=== PATIENT | female | born 1985 | race Caucasian/White ===

== ENCOUNTER 2022-03-19 08:56 | Outpatient (REF) | payer OTHER, SELFPAY ==
--- NOTE | ~2022-03-19 | XR_ITS ---
EXAMINATION: BILATERAL KNEE X-RAY CLINICAL INFORMATION: Pain COMPARISON: None TECHNIQUE: 2 views of each knee FINDINGS: Bone alignment is normal. No fracture or dislocation is seen. Joint spaces are normal. There is no joint effusion. XR/XR knee RT 2V IMPRESSION: Unremarkable exam.
--- NOTE | ~2022-03-19 | XR_ITS ---
EXAMINATION: BILATERAL KNEE X-RAY CLINICAL INFORMATION: Pain COMPARISON: None TECHNIQUE: 2 views of each knee FINDINGS: Bone alignment is normal. No fracture or dislocation is seen. Joint spaces are normal. There is no joint effusion. XR/XR knee LT 2V IMPRESSION: Unremarkable exam.
[2022-03-19 09:21] LABS: MANUAL DIFF FLAG NO
[2022-03-19 09:54] LABS: Basophils Percent Auto 0.5 % (0-2); Eosinophils Absolute Auto 0.2 X10*3/uL (0.0-0.4); Eosinophils Percent Auto 5.6 % (0-4); Hematocrit 38.5 % (37.0-47.0); Hemoglobin 12.9 g/dl (12.0-16.0); Imm Gran Abs Auto 0.01 X10*3/uL (0.00-0.03); Imm Gran Pct Auto 0.2 % (0.0-0.4); Lymphocytes Absolute Auto 1.3 X10*3/uL (1.2-4.9); Lymphocytes Percent Auto 30.5 % (20-40); Mean Corpuscular HGB Conc 33.5 g/dl (31.0-35.0); Mean Corpuscular Hemoglobin 28.2 pg (27.0-33.0); Mean Corpuscular Volume 84.2 fL (80.0-98.0); Mean Platelet Volume 9.7 fL (9.4-12.3); Monocytes Absolute Auto 0.6 X10*3/uL (0.1-1.2); Monocytes Percent Auto 13.7 % (2-11); Neutrophils Percent Auto 49.5 % (45-73); Platelet Count 238 X10*3/uL (160-400); Red Blood Count 4.57 X10*6/uL (4.20-5.50); Red Cell Distribution Width 12.6 % (11.0-16.0); White Blood Count 4.1 X10*3/uL (4.8-10.8)
[2022-03-19 10:28] LABS: Alanine Aminotransferase 31 U/L (0-31); Alkaline Phosphatase 74 U/L (39-117); Anion Gap 14 (12-20); Aspartate Amino Transferase 23 U/L (5-31); Bilirubin Total 0.4 mg/dL (0.0-1.0); Blood Urea Nitrogen 15 mg/dL (9-16); Calcium 8.9 mg/dL (8.4-10.2); Carbon Dioxide 27 mmol/L (22-29); Chloride 103 mmol/L (96-108); Cholesterol 174 mg/dL; Estimated Glomerular Filt Rate > 60; Glucose Fasting 91 mg/dL (60-99); HDL Cholesterol 38 mg/dL; LDL Cholesterol Calculated 122 mg/dl; Potassium 3.5 mmol/L (3.3-5.1); Sodium 140 mmol/L (135-145); Total Protein 7.4 g/dL (6.5-8.0); Triglycerides 73 mg/dL
[2022-03-19 11:16] LABS: TSH reflex Free T4 2.47 uIU/mL (0.32-4.0)
[2022-03-19 11:43] LABS: Folate 8.6 ng/mL (> or = 4.0); Vitamin B12 368 pg/mL (200-900)
[2022-03-22 08:51] LABS: HCG Tumor Marker <3 mIU/mL; Prolactin 8.1 ng/mL
[2022-03-25 12:41] LABS: Vitamin D 25-OH, D2 <4 ng/mL; Vitamin D 25-OH, D3 16 ng/mL; Vitamin D 25-OH, Total 16 ng/mL (30-100)
[2022-03-28 19:57] LABS: Estrogen 116.3 pg/mL
== END 2022-03-19 08:57 | disposition home or self-care (01) ==
LOC: HO.XRAY 08:56
PROVIDERS: PCP Nurse Practitioner Acute Care; Visit Provider Nurse Practitioner Acute Care
DX: Z00.00 Encounter for general adult medical examination without abnormal findings (principal); N92.6 Irregular menstruation, unspecified; N91.2 Amenorrhea, unspecified; M25.561 Pain in right knee; M25.562 Pain in left knee
CPT/HCPCS: 36415; 73560; 80053; 80061; 82306; 82607; 82672; 82746; 84146; 84443; 84702; 85025

== ENCOUNTER 2023-03-26 11:10 | Emergency (ER) | payer OTHER, SELFPAY ==
--- NOTE | ~2023-03-26 | CT_ITS ---
EXAMINATION: CT ABDOMEN AND PELVIS WITH CONTRAST CLINICAL INFORMATION: Bloody diarrhea and abdominal cramping COMPARISON: CT abdomen pelvis 05/24/2009 TECHNIQUE: Multidetector volumetric images were obtained from the superior aspect of the liver through the pubic symphysis following administration 85 mL of Omnipaque 350 intravenous contrast. Sagittal and coronal reformatted images were obtained on the technologist's workstation. Oral contrast: No This CT examination was performed using dose optimization techniques as appropriate, variously including the following: *Automated exposure control *Adjustment of mA and/or kV according to patient size (this includes techniques or standardized protocols for targeted exams where dose is matched to indication/reason for exam; i.e. extremities or head) *Use of iterative reconstruction technique DLP: 650 mGy-cm FINDINGS: LUNG BASES: The visualized lung bases are unremarkable. LIVER, GALLBLADDER, AND BILIARY TREE: The liver is normal in size, shape, and attenuation. No focal hepatic lesion or biliary ductal dilatation is present. The gallbladder is unremarkable with no evidence of radiopaque gallstones, gallbladder wall thickening, or obvious pericholecystic inflammatory changes. PANCREAS: Unremarkable. SPLEEN: Unremarkable. ADRENAL GLANDS: Unremarkable. KIDNEYS AND URETERS: The kidneys are normal in size, shape, and attenuation. No hydronephrosis, hydroureter, or calculi seen. No perinephric stranding. BLADDER: Unremarkable. GASTROINTESTINAL TRACT: Wall thickening and inflammatory change is present throughout the rectosigmoid as well as the descending colon. The transverse colon and in right: Appear normal. At the time of the 2008 CT scan, similar, but significant less marked findings were present. The small bowel is unremarkable. The appendix is unremarkable. ABDOMINAL WALL: No significant hernia is appreciated. LYMPH NODES: Normal. VASCULAR: Unremarkable. PELVIC VISCERA: The uterus and adnexa are unremarkable. Small volume of ascites is present in the cul-de-sac. OSSEOUS STRUCTURES: Unremarkable. The SI joints appear normal. CT/CT abdomen pelvis w IV con IMPRESSION: Colitis involving the descending colon and rectosigmoid. Fleischner guidelines were followed.
[2023-03-26 11:13] VITALS: BP 120/72; PULSE 94; RESP 18; TEMP 36.2; O2SAT 92; BMI 32.0
--- NOTE | 2023-03-26 11:14 | ED_ITS ---
HPI - General Adult General Chief complaint: Nausea/Vomiting/Diarrhea Stated complaint: diarrhea Time Seen by Provider: 03/26/23 11:17 Source: patient Mode of arrival: ambulatory Limitations: no limitations History of Present Illness HPI narrative: 37yoF with a PMHx of ulcerative colitis who is been in remission x 7 years, anxiety, GERD who is presenting to the ER with complaints of abdominal pain with bloody stools over the past week worse today. Reports that she initially started having nausea and vomiting with diarrhea that was normal in color and abdominal cramping. She called her boss at [facility] due to she was not feeling well a few days ago and 1 of her bosses told them that it was going around the [facility]. She denies any recent travel or sick contacts or any recent antibiotic usage. She reports she has had this in the past when she had a flare of her ulcerative colitis although has not had a flare in 7 years although is not a medications were either due to in remission for 7 years. She reports the nausea vomiting have resolved although she is concerned due to the abdominal cramping and bloody diarrhea continues. She reports that it is bright red blood and it is mixed in the stool she is not only having blood without a bowel movement. She denies any fevers, chills, dizziness, headaches, chest pain or shortness of breath, back pain, flank pain, dysuria, hematuria, abnormal vaginal discharge, black stools, possible bad food exposure or history of C diff or any other symptoms complaints or concerns at this time. MD complaint: abd cramping and bloody diarrhea Onset (ago): week(s) (1) Related Data Previous Rx's Medication Instructions Recorded desogestrel 0.15 mg-ethinyl 1 tab PO DAILY #84 tabs 03/19/22 estradiol 0.03 mg tablet (Isibloom) omeprazole 20 mg capsule,delayed 20 mg PO DAILY #30 caps 03/19/22 release paroxetine HCl 40 mg tablet 40 mg PO DAILY #30 tabs 03/19/22 calcitriol 0.25 mcg capsule 0.25 mcg PO DAILY #90 caps 03/25/22 ondansetron HCl 4 mg tablet 4 mg PO Q8H #14 tabs 03/26/23 prednisone 20 mg tablet 60 mg PO DAILY 03/26/23 inflammation/colitis 7 days #21 tabs Allergies Allergy/AdvReac Type Severity Reaction Status Date / Time Cephalosporins Allergy Unknown HIVES/LIP Verified 03/26/23 11:15 SWELLING Review of Systems Review of Systems: Constitutional : No Fever, No Chills, No Night Sweats, No Fatigue, No Malaise Cardiovascular : No Chest Pain, No SOB Respiratory : No Cough, No Sputum, No Wheezing, No Dyspnea Gastrointestinal : + Nausea, + Vomiting, + Diarrhea, + abdominal Pain, + Hematochezia, No Melena Genitourinary : No irregular bleeding, No Dysuria, No Urinary Frequency, No Hematuria,No Urinary Incontinence, No Urgency, No Flank Pain Musculoskeletal : No joint pain, No Myalgias, No Joint Swelling Skin : No Skin Lesions, No rash Neuro : No Weakness, No Numbness, No Paresthesias, No Loss of Consciousness, No Dizziness, No Headache Heme/Lymph: No Lymphadenopathy Endocrine : No Temperature Intolerance Yes all other systems are reviewed and are negative [facility] Past Medical History Attestation statement: The following information was validated with the patient. Source: old records reviewed and nursing notes reviewed Medical History PMDD (premenstrual dysphoric disorder) Uses control Social History Social History Housing: House Patient Tobacco Use Status: Never used Tobacco Smoked in Last 30 Days: No e-Cigarette/Vaping Use: Never Used Use of substances other than those prescribed or required for medical reasons: No Advance Directives: No Advance Directives Information Provided: No service: No Current occupational status: employed Current occupational exposures/hazards: No Cognitive needs: No Hearing needs: No Vision needs: No Physical Exam ED Vital Signs: Vital Signs - 24 hr 03/26/23 11:13 03/26/23 15:07 Temperature 97.1 F 98.5 F Pulse Rate 94 81 Respiratory Rate 18 16 Blood Pressure 120/72 109/65 Pulse Oximetry 92 97 Oxygen Delivery Method Room Air Room Air BMI result Body Mass Index 32.0 Vital signs have been reviewed and all within normal limits Appearance: Alert. Oriented X3. No acute distress. Head: Normal external exam. Normocephalic. Eyes: PERRLA. EOMI. Conjunctiva and sclera normal. Eyelids normal. ENT: Pharynx normal. Uvula midline. Moist mucous membranes. No trismus noted. No drooling noted. No muffled voice noted. Neck: Normal inspection. Neck supple. FROM. No adenopathy. No meningeal signs. CVS: Normal heart rate and rhythm. Heart sound normal. No murmurs noted. Pulses normal throughout. Respiratory: No respiratory distress. Painless inspiration. Breath sounds normal. No wheezes/rales/rhonchi noted. Chest nontender. No accessory muscle usage noted or decreased air movement noted. Abdomen: Soft and mild tenderness diffusely no point tenderness is noted. Nondistended. No guarding. No rigidity. Bowel sounds normal in all 4 quadrants. No distention noted. No organomegaly noted. No visible injury noted. No rebound tenderness. Negative Rovsing sign. Negative obturator's sign. Negativ e psoas sign. Negative Haque sign. Back: No CVA tenderness. Full range of motion noted. Skin: Skin warm and dry. Normal skin color. Normal skin turgor. No rashes/lesions/lacerations noted. Extremities: Extremities exhibit normal range of motion. Extremities nontender. Neuro: Oriented X 3. No motor deficit. No sensory deficit. Reflexes normal. Normal steady gait. CN's II-XII intact bilaterally? Course Course Course Narrative: 37 year old female with for anxiety, GERD presents for evaluation of diarrhea with rectal bleeding. Denies any risk factors for C diff. Denies any recent tr charlene. She is well-appearing. Labs ordered Reevaluation(s) Reevaluation #1: This patient presents with symptoms concerning for a lower GI bleed. Differential diagnoses include diverticulitis (most common cause) versus ulcerat rayna colitis versus hemorrhoids. Less likely etiologies include angiodysplasia, cancer, IBD. Presentation not consistent with mesenteric ischemia or ischemic colitis, brisk or life threatening upper GIB as patient has no evidence of hemorrhagic shock. Plan: labs, LFTs, close hemodynamic monitoring, serial reassessment, CT AP, stool sample and stool occult and re-evaluate Time: 11:35 Reevaluation #2: Labs reviewed and labs are at baseline. No evidence of anemia at all. She has a normal H&H. Negative . UA revealed 30 of protein and some blood otherwise no evidence of UTI. Stool occult is positive. Patient negative for C diff. awaiting CT scan abdomen pelvis with IV contrast will re-evaluate. Time: 14:05 Reevaluation #3: CT scan revealed Colitis involving the descending colon and rectosigmoid. Therefore at this time will DC home with nausea medication and course of steroids and instructions to follow-up with Dr. Davidson her toy stuffer and to return if any new or worsening symptoms. Patient understands agrees with this plan. Time: 15:53 Medications Administered Discontinued Medications Generic Name Dose Route Start Last Admin Trade Name Freq PRN Reason Stop Dose Admin Sodium Chloride 1,000 mls @ 999 mls/hr 03/26/23 13:15 03/26/23 14:54 Ns IVCONT 03/26/23 14:15 Infused .Q1H1M RAJENDRA Infusion Iohexol 100 ml 03/26/23 14:17 03/26/23 14:17 Iohexol 350 Mg/Ml 100 Ml Infus..Btl IV 03/26/23 14:18 85 ml ONCE ONE Administration Medical Decision Making Lab Data [facility] Lab Attestation statement: I reviewed the patient's lab results. 03/26/23 12:01 03/26/23 12:01 Labs: Lab Results 03/26/23 03/26/23 03/26/23 Range/Units 12:01 12:01 12:01 WBC 5.9 (4.8-10.8) X10*3/uL RBC 4.70 (4.20-5.50) X10*6/uL Hgb 12.9 (12.0-16.0) g/dl Hct 39.3 (37.0-47.0) % MCV 83.6 (80.0-98.0) fL MCH 27.4 (27.0-33.0) pg MCHC 32.8 (31.0-35.0) g/dl RDW 13.2 (11.0-16.0) % Plt Count 234 (160-400) X10*3/uL MPV 9.1 L (9.4-12.3) fL Immature Gran % (Auto) 0.5 H (0.0-0.4) % Neut % (Auto) 65.1 (45-73) % Lymph % (Auto) 14.9 L (20-40) % Carroll % (Auto) 7.8 (2-11) % Eos % (Auto) 11.2 H (0-4) % Baso % (Auto) 0.5 (0-2) % Lymph # (Auto) 0.9 L (1.2-4.9) X10*3/uL [place] # (Auto) 0.5 (0.1-1.2) X10*3/uL Eos # (Auto) 0.7 H (0.0-0.4) X10*3/uL Baso # (Auto) 0.0 (0.0-0.2) X10*3/uL Abs Immat Gran (auto) 0.03 (0.00-0.03) X10*3/uL Absolute Neuts (auto) 3.8 (2.0-8.3) x10*3/uL Absolute Nucleated RBC 0.000 (0.0-0.012) X10*3/uL Nucleated RBC % (auto) 0.0 (0.0-0.2) /100WBC PT 11.5 (10.0-13.1) SEC INR 1.0 (0.9-1.1) APTT 34.9 (26.0-36.4) SEC Sodium 142 (135-145) mmol/L Potassium 3.9 (3.3-5.1) mmol/L Chloride 109 H (96-108) mmol/L Carbon Dioxide 25 (22-29) mmol/L Anion Gap 12 (12-20) BUN 8 L (9-16) mg/dL Creatinine 0.94 (0.5-1.4) mg/dL Estim Creat Clear Calc 80.7 Estimated GFR > 60 Random Glucose 86 (60-115) mg/dL Calcium 8.3 L D (8.4-10.2) mg/dL Total Bilirubin 0.3 (0.0-1.0) mg/dL AST 23 (5-31) U/L ALT 16 (0-31) U/L Alkaline Phosphatase 77 (39-117) U/L Total Protein 6.7 (6.5-8.0) g/dL Albumin 3.9 (3.5-5.0) g/dL Lipase 28 (8-78) U/L Beta HCG, Quant mIU/mL Urine Color Urine Appearance Urine pH (5.0-9.0) Ur Specific [place] (1.005-1.025) Urine Protein (Neg-Trace) mg/dL Urine Glucose (UA) (Negative) mg/dL Urine Ketones (Negative) mg/dL Urine Blood (Negative) Urine Nitrite (Negative) Ur Leukocyte Esterase (Negative) Urine RBC (0-2) /HPF Urine WBC (0-5) /HPF Ur Squamous Epith Cells (0-2) /HPF Urine Bacteria (None Seen) Hyaline Casts (0-2) /LPF Stool Occult Blood (NEGATIVE) C. difficile Tox B Gene (Negative) 03/26/23 03/26/23 03/26/23 Range/Units 12:01 12:38 12:38 WBC (4.8-10.8) X10*3/uL RBC (4.20-5.50) X10*6/uL Hgb (12.0-16.0) g/dl Hct (37.0-47.0) % MCV (80.0-98.0) fL MCH (27.0-33.0) pg MCHC (31.0-35.0) g/dl RDW (11.0-16.0) % Plt Count (160-400) X10*3/uL MPV (9.4-12.3) fL Immature Gran % (Auto) (0.0-0.4) % Neut % (Auto) (45-73) % Lymph % (Auto) (20-40) % Carroll % (Auto) (2-11) % Eos % (Auto) (0-4) % Baso % (Auto) (0-2) % Lymph # (Auto) (1.2-4.9) X10*3/uL [place] # (Auto) (0.1-1.2) X10*3/uL Eos # (Auto) (0.0-0.4) X10*3/uL Baso # (Auto) (0.0-0.2) X10*3/uL Abs Immat Gran (auto) (0.00-0.03) X10*3/uL Absolute Neuts (auto) (2.0-8.3) x10*3/uL Absolute Nucleated RBC (0.0-0.012) X10*3/uL Nucleated RBC % (auto) (0.0-0.2) /100WBC PT (10.0-13.1) SEC INR (0.9-1.1) APTT (26.0-36.4) SEC Sodium (135-145) mmol/L Potassium (3.3-5.1) mmol/L Chloride (96-108) mmol/L Carbon Dioxide (22-29) mmol/L Anion Gap (12-20) BUN (9-16) mg/dL Creatinine (0.5-1.4) mg/dL Estim Creat Clear Calc Estimated GFR Random Glucose (60-115) mg/dL Calcium (8.4-10.2) mg/dL Total Bilirubin (0.0-1.0) mg/dL AST (5-31) U/L ALT (0-31) U/L Alkaline Phosphatase (39-117) U/L Total Protein (6.5-8.0) g/dL Albumin (3.5-5.0) g/dL Lipase (8-78) U/L Beta HCG, Quant < 2 mIU/mL Urine Color Urine Appearance Urine pH (5.0-9.0) Ur Specific [place] (1.005-1.025) Urine Protein (Neg-Trace) mg/dL Urine Glucose (UA) (Negative) mg/dL Urine Ketones (Negative) mg/dL Urine Blood (Negative) Urine Nitrite (Negative) Ur Leukocyte Esterase (Negative) Urine RBC (0-2) /HPF Urine WBC (0-5) /HPF Ur Squamous Epith Cells (0-2) /HPF Urine Bacteria (None Seen) Hyaline Casts (0-2) /LPF Stool Occult Blood POSITIVE (NEGATIVE) C. difficile Tox B Gene NEGATIVE (Negative) 03/26/23 Range/Units 12:38 WBC (4.8-10.8) X10*3/uL RBC (4.20-5.50) X10*6/uL Hgb (12.0-16.0) g/dl Hct (37.0-47.0) % MCV (80.0-98.0) fL MCH (27.0-33.0) pg MCHC (31.0-35.0) g/dl RDW (11.0-16.0) % Plt Count (160-400) X10*3/uL MPV (9.4-12.3) fL Immature Gran % (Auto) (0.0-0.4) % Neut % (Auto) (45-73) % Lymph % (Auto) (20-40) % Carroll % (Auto) (2-11) % Eos % (Auto) (0-4) % Baso % (Auto) (0-2) % Lymph # (Auto) (1.2-4.9) X10*3/uL [place] # (Auto) (0.1-1.2) X10*3/uL Eos # (Auto) (0.0-0.4) X10*3/uL Baso # (Auto) (0.0-0.2) X10*3/uL Abs Immat Gran (auto) (0.00-0.03) X10*3/uL Absolute Neuts (auto) (2.0-8.3) x10*3/uL Absolute Nucleated RBC (0.0-0.012) X10*3/uL Nucleated RBC % (auto) (0.0-0.2) /100WBC PT (10.0-13.1) SEC INR (0.9-1.1) APTT (26.0-36.4) SEC Sodium (135-145) mmol/L Potassium (3.3-5.1) mmol/L Chloride (96-108) mmol/L Carbon Dioxide (22-29) mmol/L Anion Gap (12-20) BUN (9-16) mg/dL Creatinine (0.5-1.4) mg/dL Estim Creat Clear Calc Estimated GFR Random Glucose (60-115) mg/dL Calcium (8.4-10.2) mg/dL Total Bilirubin (0.0-1.0) mg/dL AST (5-31) U/L ALT (0-31) U/L Alkaline Phosphatase (39-117) U/L Total Protein (6.5-8.0) g/dL Albumin (3.5-5.0) g/dL Lipase (8-78) U/L Beta HCG, Quant mIU/mL Urine Color Yellow Urine Appearance Clear Urine pH 5.5 (5.0-9.0) Ur Specific [place] >= 1.030 H (1.005-1.025) Urine Protein 30 (1+) H (Neg-Trace) mg/dL Urine Glucose (UA) Negative (Negative) mg/dL Urine Ketones Negative (Negative) mg/dL Urine Blood Negative (Negative) Urine Nitrite Negative (Negative) Ur Leukocyte Esterase Negative (Negative) Urine RBC 3-5 H (0-2) /HPF Urine WBC 0-5 (0-5) /HPF Ur Squamous Epith Cells 6-10 (0-2) /HPF Urine Bacteria 2+ (None Seen) Hyaline Casts 0-2 (0-2) /LPF Stool Occult Blood (NEGATIVE) C. difficile Tox B Gene (Negative) Independent Interpretation I performed an independent interpretation of an: CT Scan (CT scan abdomen pelvis with IV contrast reviewed by myself agreeable radiology report) Radiology Impression Discussion of test interpretation with radiology: I have reviewed the radiologist's reading. Radiologist Impression: FINDINGS: LUNG BASES: The visualized lung bases are unremarkable.? LIVER, GALLBLADDER, AND BILIARY TREE: The liver is normal in size, shape, and attenuation. No focal hepatic lesion or biliary ductal dilatation is present. The gallbladder is unremarkable with no evidence of radiopaque gallstones, gallbladder wall thickening, or obvious pericholecystic inflammatory changes.? PANCREAS: Unremarkable.? SPLEEN: Unremarkable.? ADRENAL GLANDS: Unremarkable.? KIDNEYS AND URETERS: The kidneys are normal in size, shape, and attenuation. No hydronephrosis, hydroureter, or calculi seen. No perinephric stranding. ? BLADDER: Unremarkable.? GASTROINTESTINAL TRACT: Wall thickening and inflammatory change is present throughout the rectosigmoid as well as the descending colon. The transverse colon and in right: Appear normal. At the time of the 2009 CT scan, similar, but significant less marked findings were present. The small bowel is unremarkable. The appendix is unremarkable. ? ABDOMINAL WALL: No significant hernia is appreciated.? LYMPH NODES: Normal. VASCULAR: Unremarkable. PELVIC VISCERA: The uterus and adnexa are unremarkable. Small volume of ascites is present in the cul-de-sac. OSSEOUS STRUCTURES: Unremarkable. The SI joints appear normal. CT/CT abdomen pelvis w IV con IMPRESSION: Colitis involving the descending colon and rectosigmoid. ? Fleischner guidelines were followed. External Record Review External record reviewed: Inpatient record, Office record, Outpatient record, Prior outpatient labs, Prior outpatient radiology, Primary care record and Outside ED record I reviewed all the patient's primary care visits prior labs/imaging that are accessible in our system Prescription Management I considered prescription management with: Other (Zofran and prednisone for inflammation and nausea) Chronic Conditions Patient?s care impacted by: Other (Ulcerative colitis) Discharge Plan Discharge Clinical Impression: Colitis, Nausea & vomiting, Bloody diarrhea, Abdominal pain, Occult blood positive stool Patient Disposition: Home, Self-Care Instructions: Colitis (ED) Prescriptions: New prednisone 20 mg tablet 60 mg PO DAILY 7 Days Qty: 21 0RF ondansetron HCl 4 mg tablet 4 mg PO Q8H Qty: 14 0RF No Action calcitriol 0.25 mcg capsule 0.25 mcg PO DAILY Qty: 90 0RF omeprazole 20 mg capsule,delayed release(DR/EC) 20 mg PO DAILY Qty: 30 2RF paroxetine HCl 40 mg tablet 40 mg PO DAILY Qty: 30 2RF desogestrel-ethinyl estradiol [Isibloom] 0.15-0.03 mg tablet 1 tab PO DAILY Qty: 84 0RF Referrals: Yo Palacios [Physician] - (Call Tuesday to make a follow-up appointment at their earliest convenience)
[2023-03-26 12:20] LABS: MANUAL DIFF FLAG NO
[2023-03-26 12:21] LABS: Basophils Percent Auto 0.5 % (0-2); Eosinophils Absolute Auto 0.7 X10*3/uL (0.0-0.4); Eosinophils Percent Auto 11.2 % (0-4); Hematocrit 39.3 % (37.0-47.0); Hemoglobin 12.9 g/dl (12.0-16.0); Imm Gran Abs Auto 0.03 X10*3/uL (0.00-0.03); Imm Gran Pct Auto 0.5 % (0.0-0.4); Lymphocytes Absolute Auto 0.9 X10*3/uL (1.2-4.9); Lymphocytes Percent Auto 14.9 % (20-40); Mean Corpuscular HGB Conc 32.8 g/dl (31.0-35.0); Mean Corpuscular Hemoglobin 27.4 pg (27.0-33.0); Mean Corpuscular Volume 83.6 fL (80.0-98.0); Mean Platelet Volume 9.1 fL (9.4-12.3); Monocytes Absolute Auto 0.5 X10*3/uL (0.1-1.2); Monocytes Percent Auto 7.8 % (2-11); Neutrophils Absolute Auto 3.8 x10*3/uL (2.0-8.3); Neutrophils Percent Auto 65.1 % (45-73); Platelet Count 234 X10*3/uL (160-400); Red Cell Distribution Width 13.2 % (11.0-16.0); White Blood Count 5.9 X10*3/uL (4.8-10.8)
[2023-03-26 12:28] LABS: Prothrombin Time 11.5 SEC (10.0-13.1)
[2023-03-26 12:31] LABS: Partial Thromboplastin Time 34.9 SEC (26.0-36.4)
[2023-03-26 12:38] LABS: Alanine Aminotransferase 16 U/L (0-31); Albumin Level 3.9 g/dL (3.5-5.0); Alkaline Phosphatase 77 U/L (39-117); Anion Gap 12 (12-20); Aspartate Amino Transferase 23 U/L (5-31); Bilirubin Total 0.3 mg/dL (0.0-1.0); Blood Urea Nitrogen 8 mg/dL (9-16); Calcium 8.3 mg/dL (8.4-10.2); Carbon Dioxide 25 mmol/L (22-29); Chloride 109 mmol/L (96-108); Creatinine Clr Calc Pharmacy 80.7; Estimated Glomerular Filt Rate > 60; Glucose Random 86 mg/dL (60-115); Lipase 28 U/L (8-78); Potassium 3.9 mmol/L (3.3-5.1); Sodium 142 mmol/L (135-145); Total Protein 6.7 g/dL (6.5-8.0)
[2023-03-26 12:49] LABS: Appearance Urine Clear; Color Urine Yellow; Glucose Urine UA Negative (Negative); Leukocyte Esterase Urine Negative (Negative); Nitrite Urine Negative (Negative); PH 5.5 (5.0-9.0); Specific Gravity - Urine >= 1.030 (1.005-1.025); UMIC TRIGGER UACC YES; Urine Blood Negative (Negative); Urine Ketones Negative (Negative); Urine Protein 30 (1+) mg/dL (Neg-Trace)
[2023-03-26 12:51] LABS: OBS Int Ctl Valid YES; OBS1 POSITIVE (NEGATIVE)
[2023-03-26 12:53] LABS: Bacteria Urine 2+ (None Seen); Hyaline Casts Urine 0-2 /LPF (0-2); WBC Urine 0-5 /HPF (0-5)
[2023-03-26 13:04] LABS: HCG Quantitative < 2 mIU/mL
[2023-03-26] MEDS: 0.9 % Sodium Chloride 1,000 ML 999 ML IVCONT (13:23)
[2023-03-26 13:50] LABS: CDiff Gene PCR NEGATIVE (Negative)
[2023-03-26] MEDS: iohexoL 350 MG/ML 100 ML INFUS..BTL IV (14:17)
[2023-03-26 15:07] VITALS: BP 109/65; PULSE 81; RESP 16; TEMP 36.9; O2SAT 97
[2023-03-27 09:10] LABS: Adenovirus F 40/41 Not Detected (Not Detect.); Astrovirus Not Detected (Not Detect.); Campylobacter Not Detected (Not Detect.); Cryptosporidium Not Detected (Not Detect.); Cyclospora cayetanensis Not Detected (Not Detect.); E. coli EAEC Not Detected (Not Detect.); E. coli EPEC Not Detected (Not Detect.); E. coli ETEC Not Detected (Not Detect.); E. coli STEC Not Detected (Not Detect.); Entamoeba histolytica Not Detected (Not Detect.); Giardia lamblia Not Detected (Not Detect.); Plesiomonas shigelloides Not Detected (Not Detect.); Salmonella Not Detected (Not Detect.); Shigella sp./EIEC Not Detected (Not Detect.); Vibrio Not Detected (Not Detect.); Vibrio Cholerae Not Detected (Not Detect.); Yersinia enterocolitica Not Detected (Not Detect.)
[2023-03-27 09:11] LABS: Norovirus GI/GII Detected (Not Detect.); Rotavirus A Not Detected (Not Detect.)
[2023-03-27 09:12] LABS: Sapovirus Not Detected (Not Detect.)
== END 2023-03-26 16:32 | disposition home or self-care (01) ==
PROVIDERS: Physician Assistant; Physician Assistant Medical; Emergency Provider Emergency Medicine
DX: K52.9 Noninfective gastroenteritis and colitis, unspecified (principal); R11.2 Nausea with vomiting, unspecified; K92.1 Melena; Z79.899 Other long term (current) drug therapy
CPT/HCPCS: 36415; 74177; 80053; 81001; 82272; 83690; 84702; 85025; 85610; 85730; 87493; 87507; 96360; 99284; Q9967

== ENCOUNTER 2023-08-12 06:26 | Day surgery (SDC) | payer OTHER, SELFPAY ==
[2023-08-12 06:00] VITALS: BMI 32.3
[2023-08-12 06:28] VITALS: BP 108/71; PULSE 87; RESP 20; TEMP 36.1; O2SAT 97
[2023-08-12 06:44] LABS: UPreg QC Valid YES; Urine Pregnancy NEGATIVE (NEGATIVE)
[2023-08-12] MEDS: Lactated Ringers 1,000 ML 50 ML IVCONT (06:53)
--- NOTE | 2023-08-12 07:24 | HO.ANESPROP2 ---
[facility] Active Problems Active Problems: All Active Problems (Updated 08/12/23 @ 06:55 by Tiara Lujan RN) Vitamin D deficiency (Acute) Bilateral knee pain (Acute) Generalized anxiety disorder (Acute) Encounter to establish care (Acute) GERD without esophagitis (Acute) Left knee pain (Acute) Right knee pain (Acute) Establishing care with new doctor, encounter for (Acute) Amenorrhea (Acute) Annual physical exam (Acute) Menstrual changes (Acute) Acute sinusitis (Acute) Uses control (Acute) PMDD (premenstrual dysphoric disorder) (Acute) Past Medical History Medical History Colitis Uses control PMDD (premenstrual dysphoric disorder) Surgical History Surgical History Hx of colonoscopy [place] teeth extracted Hx of LASIK History of Problems with Anesthesia: No Social History Social History Housing: House Patient Tobacco Use Status: Never used Tobacco e-Cigarette/Vaping Use: Never Used Are you DNR?: No Advance Directives: No Advance Directives Information Provided: Yes service: No Current occupational status: employed Current occupational exposures/hazards: No Cognitive needs: No Hearing needs: No Vision needs: No Meds Allergies Allergy/AdvReac Type Severity Reaction Status Date / Time Cephalosporins Allergy Unknown HIVES/LIP Verified 03/26/23 11:15 SWELLING Active Medications: Current Medications Lactated Ringer's (Lr) 1,000 mls @ 50 mls/hr IVCONT .Q20H RAJENDRA Last Admin: 08/12/23 06:53 Dose: 50 mls/hr Home Medications Medication Instructions Recorded Confirmed Last Taken Type balsalazide 750 mg capsule 2,250 mg PO TID 08/11/23 08/11/23 Unknown History Exam Exam Date and Time: August 12, 2023 0724 Height,Weight and Vital Signs: Height 5 ft 3.5 in Weight 83.915 kg Last Vital Signs Temp 97 F 08/12/23 06:28 Pulse 87 08/12/23 06:28 Resp 20 08/12/23 06:28 BP 108/71 08/12/23 06:28 Pulse Ox 97 08/12/23 06:28 O2 Del Method Room Air 08/12/23 06:28 Pertinent Lab Results Pertinent Lab Results: Laboratory Tests 08/12/23 06:38 Urine Test NEGATIVE Airway Mallampati Class: II TM Dist: >3cm Neck ROM: Full Loose/Missing/Broken Teeth: No Heart: RRR Lungs: CTA Assessment and Plan Assessment Anesthesia Assessment: Anesthesia Plan Discussed and Chart Reviewed Final Anesthetic Review History of Problems with Anesthesia: No NPO: Yes ASA Class: II Final Preanesthetic Review: Meds/Allgs Chart Reviewed, Consent Obtained/Reviewed and Anes Risks/Benef Reviewed Patient Risk: Low Procedure Risk: Low Anesthetic Plan Anesthetic Plan: MAC: Disposition: Standard PACU
[2023-08-12 08:30] VITALS: BP 108/55; PULSE 77; RESP 18; TEMP 36.1; O2SAT 98
--- NOTE | 2023-08-12 08:37 | PM.OP ---
Brief Operative Note Date of Service: 08/12/23 Pre-op diagnosis: Ulcerative colitis, Screening Post-op diagnosis: other (Same, R/O dysplasia) Procedure: Colonoscopy to the cecum and TI with biopsies Surgeon: Yo Palacios Anesthesia: MAC Was an Online Merch[employer]ist used for this Procedure?: No Estimated blood loss (mL): 3.0 Pathology: other (A. Ascending colon B. Transverse colon C. Descending colon D. Sigmoid colon E. Rectum) Condition: stable Disposition: PACU
[2023-08-12 08:45] VITALS: BP 101/62; PULSE 77; RESP 20; TEMP 36.1; O2SAT 99
--- NOTE | 2023-08-12 08:59 | OP_ITS ---
DATE OF SERVICE: 08/12/2023 SURGEON: Yo Palacios MD INDICATIONS: The patient presents for evaluation of underlying history of ulcerative colitis and colorectal cancer screening. Full consent obtained from her for this, including risks of bleeding and perforation. PREOPERATIVE DIAGNOSIS: Ulcerative colitis and colorectal cancer screening. POSTOPERATIVE DIAGNOSIS: Ulcerative colitis and colorectal cancer screening, rule out dysplasia, small internal hemorrhoids. PROCEDURE PERFORMED: Colonoscopy to cecum, terminal ileum with multiple biopsies. ESTIMATED BLOOD LOSS: COMPLICATIONS: ANESTHESIA: Monitored anesthesia care. ASSISTANTS: SPECIMENS: DESCRIPTION OF PROCEDURE: The patient was placed in the left lateral decubitus position. The digital rectal exam revealed no abnormalities. There was no perianal disease. The Olympus video pediatric colonoscope was entered into the rectum and advanced easily to the cecum. Once in the cecum, I did identify normal-appearing cecal pouch with appendiceal orifice and a normal-appearing ileocecal valve. The terminal ileum was cannulated and appeared normal. There was no sign of any Crohn disease. The scope was withdrawn back in the colon. The entire cecum and ileocecal valve appeared normal. The scope was slowly withdrawn assessing all mucosal surfaces carefully. Preparation was excellent. I did not visualize any sign of active colitis other than several 2 mm erosions in the descending colon. There was no sign of polyps nor angiodysplasia. Random biopsies were obtained in the ascending colon, transverse colon, descending colon, sigmoid colon and rectum. In the rectum, scope was retroflexed visualizing minimal internal hemorrhoids, but no other pathology. There was no sign of any proctitis. The scope was straightened and withdrawn from the patient. She tolerated the procedure well and was returned to recovery area in stable condition. IMPRESSION: 1. History of ulcerative colitis, rule out dysplasia. 2. Internal hemorrhoids. PLAN: The results of the biopsies will be checked. Assuming there is no dysplasia, I would recommend a repeat colonoscopy in 3 years for further screening. She was advised to continue her current regimen of the balsalazide 2.25 g t.i.d. She will be seen in the spring for a followup visit, but was instructed to call sooner as needed. She was advised to avoid all aspirin and NSAIDs for at least 1 week, but to try to avoid them long-term in general due to the underlying inflammatory bowel disease. MD JESSIE Díaz/MARLENY / [id number]
== END 2023-08-12 09:10 | disposition home or self-care (01) ==
PROVIDERS: Anesthesiology; PCP Student in an Organized Health Care Education/Training Program; Visit Provider Internal Medicine
PROC: 0DJD8ZZ Inspection of Lower Intestinal Tract, Via Natural or Artificial Opening Endoscopic (ICD-10-PCS; CPT 45378; principal; 2023-08-12 07:30)
DX: Z12.11 Encounter for screening for malignant neoplasm of colon (principal); K51.00 Ulcerative (chronic) pancolitis without complications; K64.8 Other hemorrhoids; K21.9 Gastro-esophageal reflux disease without esophagitis; Z79.899 Other long term (current) drug therapy
CPT/HCPCS: 45380; 81025; 88305